=== PATIENT | male | born 1975 | race Caucasian/White ===

== ENCOUNTER 2021-02-05 11:01 | Emergency (ER) | payer OTHER ==
--- NOTE | 2021-02-05 12:26 | RAD REPORT ---
EXAM DESCRIPTION: RAD - Chest Single View - 02/05/2021 12:18 pm CLINICAL HISTORY: cough, sob, covid + COMPARISON: Chest Pa And Lat (2 Views) dated 08/20/2019 FINDINGS: Mild to moderate bilateral airspace opacities noted. Decreased lung volumes. Cardiomegaly. No acute osseous abnormality. No significant pleural effusions or pneumothorax. IMPRESSION: Mild to moderate bilateral airspace disease. This likely represents multifocal pneumonia .
--- NOTE | 2021-02-05 14:07 | EDPHYS ---
Physician Documentation [facility] Name: Matthew Price Jr Age: 45 yrs Sex: Male : 1975 Arrival Date: 02/05/2021 Time: 11:04 Bed Waiting Private MD: Guillermo Alonso C ED Physician Francisco Thompson HPI: 02/05 14:03 This 45 yrs old Male presents to ER via Ambulatory with complaints of COVID+, jmm Breathing Difficulty, Cough. 14:03 The patient or guardian reports cough. Onset: The symptoms/episode began/occurred jmm gradually, 6 day(s) ago. Modifying factors: The symptoms are alleviated by the symptoms are aggravated by activity. Associated signs and symptoms: Pertinent negatives: vomiting. This is a 45-year-old male with history of hypertension, hyper lipidemia that presents emerged part with complaints of progressively worsening shortness of breath since being diagnosed with Covid this past Friday. Patient denies chest pain, denies back pain. . Historical: - Allergies: 11:33 No Known Allergies; ss - PMHx: 11:33 Hypertensive disorder; High Cholesterol; ss - Immunization history:: Client reports having NOT received the Covid vaccine. - Social history:: Smoking status: Patient denies any tobacco usage or history of. ROS: 14:03 Constitutional: Positive for fatigue. jmm 14:03 Respiratory: Positive for shortness of breath. 14:03 All other systems are negative. Exam: 14:03 Constitutional: This is a well developed, well nourished patient who is awake, alert, jmm and in no acute distress. Head/Face: atraumatic. Eyes: EOMI, no conjunctival erythema appreciated ENT: Moist Mucus Membranes Neck: Trachea midline, Supple Chest/axilla: Normal chest wall appearance and motion. Cardiovascular: Regular rate and rhythm. No edema appreciated 14:03 Abdomen/GI: Non distended, soft Back: Normal ROM Skin: General appearance color normal MS/ Extremity: Moves all extremities, no obvious deformities appreciated, no edema noted to the lower extremities Neuro: Awake and alert, normal gait Psych: Behavior is normal, Mood is normal, Patient is cooperative and pleasant 14:03 Respiratory: the patient does not display signs of respiratory distress, Respirations: normal. Vital Signs: 11:30 BP 105 / 66; Pulse 84; Resp 20; Pulse Ox 95% on R/A; Weight 108.86 kg; Height 6 ft. 0 ss in. (182.88 cm); 11:34 Temp 97.8(TE); ss 11:30 Body Mass Index 32.55 (108.86 kg, 182.88 cm) ss MDM: 14:03 Patient medically screened. [facility] 14:05 Data reviewed: vital signs, nurses notes. Counseling: I had a detailed discussion with fara the patient and/or guardian regarding: the historical points, exam findings, and any diagnostic results supporting the discharge/admit diagnosis, radiology results, the need for outpatient follow up, to return to the emergency department if symptoms worsen or persist or if there are any questions or concerns that arise at home. ED course: Patient is alert and nontoxic in appearance in the ED. Patient is not tachycardic or hypoxic I do not currently suspect pulmonary embolism. Patient will be prescribed steroids and ivermectin. Patient is otherwise given strict return precautions. Patient understood and agrees plan of care.. 02/05 11:34 Order name: XRAY Chest (1 view); Complete Time: 13:59 ss Administered Medications: No medications were administered Disposition: 16:47 Co-signature as Attending Physician, Francisco Thompson I agree with the assessment and plan sp3 of care. Disposition Summary: 02/05/21 14:06 Discharge Ordered Location: Home [facility] Condition: Stable [facility] Diagnosis - Coronavirus infection, unspecified [facility] Followup: [facility] - With: Guillermo Alonso MD - When: 2 - 3 days - Reason: Recheck today's complaints, Continuance of care, Re-evaluation by your physician Discharge Instructions: - Discharge Summary Sheet [facility] - COVID-19 [facility] Forms: - Medication Reconciliation Form [facility] - Thank You Letter [facility] - Antibiotic Education [facility] - Prescription Opioid Use [facility] - Work release form jp3 Prescriptions: - ivermectin 3 mg Oral tablet - take 6 tablet by ORAL route as directed 6 tablets today and then another 6 jmm tablets on day 3; 12 tablet; Refills: 0, Product Selection Permitted - Prednisone 20 mg Oral Tablet - take 3 tablets by ORAL route once daily for 5 days; 15 tablet; Refills: 0, [facility] Product Selection Permitted - albuterol sulfate 90 mcg/actuation Inhalation HFA aerosol inhaler - inhale 2 puff by INHALATION route every 4 hours; 1 Pump; Refills: 0, Product jmkeiko Selection Permitted Signatures: Dispatcher [employer] Daniel Chau PA PA jmm Smirch, Shelby, RN RN ss Francisco Thompson sp3
--- NOTE | 2021-02-05 14:07 | ER ---
Nurse's Notes [facility] Name: Matthew Price Jr Age: 45 yrs Sex: Male : 1975 Arrival Date: 02/05/2021 Time: 11:04 Bed Waiting Private MD: Guillermo Alonso C Diagnosis: Coronavirus infection, unspecified Presentation: 02/05 11:30 Chief complaint: Patient states: COVID + on Friday, began having symptoms on Friday. ss Pt is here today because his shortness of breath has gotten worse any time he exerts himself. Coronavirus screen: Client denies travel out of the [place] in the last 14 days. Ebola Screen: Patient denies exposure to infectious person. Patient denies travel to an Ebola-affected area in the 21 days before illness onset. Initial Sepsis Screen: Does the patient meet any 2 criteria? No. Patient's initial sepsis screen is negative. Does the patient have a suspected source of infection? No. Patient's initial sepsis screen is negative. Risk Assessment: Do you want to hurt yourself or someone else? Patient reports no desire to harm self or others. Onset of symptoms was February 02, 2021. 11:30 Method Of Arrival: Ambulatory ss 11:30 Acuity: OSMAR 3 ss Historical: - Allergies: 11:33 No Known Allergies; ss - PMHx: 11:33 Hypertensive disorder; High Cholesterol; ss - Immunization history:: Client reports having NOT received the Covid vaccine. - Social history:: Smoking status: Patient denies any tobacco usage or history of. Vital Signs: 11:30 BP 105 / 66; Pulse 84; Resp 20; Pulse Ox 95% on R/A; Weight 108.86 kg; Height 6 ft. 0 ss in. (182.88 cm); 11:34 Temp 97.8(TE); ss 11:30 Body Mass Index 32.55 (108.86 kg, 182.88 cm) ED Course: 11:04 Patient arrived in ED. mr 11:04 Guillermo Alonso MD is Private Physician. mr 11:33 Triage completed. ss 11:33 Arm band placed on right wrist. ss 12:18 XRAY Chest (1 view) In Process Unspecified. EDMS 13:56 Daniel Lucia PA is PHCP. jmm 13:56 Francisco Thompson is Attending Physician. georgina 14:06 Guillermo Alonso MD is Referral Physician. fara Administered Medications: No medications were administered Outcome: 14:06 Discharge ordered by . [facility] 15:14 Discharged to home ambulatory. hb 15:14 Condition: stable 15:14 Discharge instructions given to patient, Instructed on discharge instructions, follow up and referral plans. medication usage, Demonstrated understanding of instructions, follow-up care, medications, Prescriptions given X 3. 15:14 Patient left the ED. hb Signatures: Dispatcher [employer] EDMS Daniel Lucia PA PA jmm Rivera, Mary mr Susan Jimenez, RN RN Thania Barbosa RN RN hb
[2021-02-05 15:23] VITALS: BP 105/66; O2SAT 95
[2021-02-05 15:29] VITALS: TEMP 97.8
== END 2021-02-05 15:14 | disposition home or self-care (01) ==
LOC: ER 11:01
DX: U07.1 COVID-19 (principal); I10 Essential (primary) hypertension
CPT/HCPCS: 71045; 99283